=== PATIENT | male | born 1995 | race African-American/Black ===

== ENCOUNTER 2021-05-20 19:33 | Emergency (ER) | payer OTHER ==
[~2021-05-20] VITALS: Ht 193 cm; Wt 70.0 kg
[2021-05-20 20:10] VITALS: BP 123/64
[2021-05-20] MEDS ORDERED: LIDOCAINE HCL/EPINEPHRINE 1%-EPI 1:100,000 50 ML VIAL INFIL ONE (20:15)
[2021-05-20] MEDS ORDERED: LIDOCAINE HCL/EPINEPHRINE 1%-EPI 1:100,000 20 ML VIAL INFIL NR (20:30)
== END 2021-05-20 20:55 ==
LOC: ER 19:33
DX: M25.562 Pain in left knee (principal); Z86.59 Personal history of other mental and behavioral disorders
CPT/HCPCS: 73560; 99284; J3490; Z7610